=== PATIENT | male | born 1955 | race Caucasian/White ===

== ENCOUNTER 2018-05-08 14:52 | Inpatient (IN) | payer OTHER, SELFPAY ==
[2018-05-08] MEDS ORDERED: Sodium Chloride 0.9% 1,000 ML IV SCH (15:00)
[2018-05-08] MEDS ORDERED: niCARdipine 20MG In NaCl 20 MG/200 ML BAG ONE (15:13)
[2018-05-08 15:14] LABS: #Eosinphils 0.2 thou/uL (0.0-0.7); #Lymphocytes 1.5 thou/uL (1.20-3.40); #Monocytes 0.6 thou/uL (0.11-0.59); #Neutrophils 4.3 thou/uL (1.40-6.50); %Basophils 0.7 % (0.0-1.0); %Eosinophils 3.7 % (0.0-10.0); %Lymphocytes 22.5 % (21.0-51.0); %Monocytes 8.8 % (0.0-10.0); %Neutrophils 64.4 % (42.0-75.0); Mean Corpuscular HGB CONC 34.5 g/dL (32.0-36.0); Mean Corpuscular Hemoglobin 30.1 pg (27.0-31.0); Mean Corpuscular Volume 87.4 fL (78.0-98.0); Mean Platelet Volume 7.7 fL (7.4-10.4); Platelet Count 204 thou/uL (130-400); RBC Distribution Width 12.6 % (11.5-14.5); Red Blood Cell (RBC) Count 4.98 mill/uL (4.70-6.10); White Blood Cell (WBC) Count 6.7 thou/uL (4.8-10.8)
[2018-05-08 15:21] LABS: INR-International Normal Ratio 1.1; PTT 26.8 SEC (22.9-36.1); Prothrombin Time 14.4 SEC (12.0-14.7)
[2018-05-08 15:36] LABS: ALT (SGPT) 11 U/L (8-55); AST (SGOT) 18 U/L (5-34); Albumin 3.9 g/dL (3.4-4.8); Alkaline Phosphatase 87 U/L (40-150); Anion Gap 14 mmol/L (10-20); BUN (Urea Nitrogen) 19 mg/dL (8.4-25.7); Bilirubin, Total 1.2 mg/dL (0.2-1.2); Calc. Creatinine Clearance 0 mL/min (70-130); Calcium 8.7 mg/dL (7.8-10.44); Carbon Dioxide 21 mmol/L (23-31); Chloride 108 mmol/L (98-107); Estimated GFR-MDRD 38; Globulin 3.2 g/dL (2.4-3.5); Glucose 128 mg/dL (80-115); Potassium 3.5 mmol/L (3.5-5.1); Protein, Total 7.1 g/dL (5.8-8.1); Sodium 139 mmol/L (136-145)
[2018-05-08 15:38] LABS: Actual Bicarbonate (HCO3a) 24.2 mEq/L (22-28); Analyzer IN Cardio ER; Base Excess (BEa) -1.5 mEq/L (-2.0 to +3.0); CO2 Tension 44.3 mmHg (35.0-45.0); Calcium, Ionized 1.12 mmol/L (1.12-1.30); Carboxyhemoglobin (COHb) 0.9 gm% (0.0-3.0); Hemoglobin (Hb) 15.3 g/dL (14.0-18.0); O2 Tension (PaO2) 73.7 mmHg (> 80.0); Potassium - ABG Lab 3.36 mmol/L (3.70-5.30); Puncture Site RRA; pH, Arterial 7.36 (7.35-7.45)
[2018-05-08 15:39] LABS: ALV-art Gradient 227.425 (0-20)
--- NOTE | 2018-05-08 16:03 | CT ---
CT BRAIN WITHOUT CONTRAST: HISTORY: Stroke alert with left-sided deficits. COMPARISON: CT brain from 07/17/2016. FINDINGS: There is a very large left basal ganglia hemorrhage, measuring 8 x 5.3 x 4 cm. There is a rupture in to the lateral ventricles with large volume left and right lateral ventricular hemorrhage, as well as hemorrhage within the third and fourth ventricles. There is early obstructive hydrocephalus with en largement of both temporal horns. There is 2 cm left to right midline shift. The calvarium is intac t. IMPRESSION: 1. Large intracranial hemorrhage, as described above. 2. 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 POS: [facility]
--- NOTE | 2018-05-08 16:08 | RAD ---
CHEST ONE VIEW: HISTORY: Altered mental status. COMPARISON: Chest radiograph from 03/01/2017. FINDINGS: There is volume loss in the right upper lobe. The patient is intubated with the endotracheal tube ti p at the level of the clavicles. There are left lower lobe air space opacities. IMPRESSION: 1. Endotracheal tube tip likely at the level of the clavicles. 2. Volume loss in the right upper lobe. This may be due to an obstructing mass versus atelectatic c hanges. Followup recommended. 3. Air space opacities in the left lung base concerning for infection. POS: [facility]
[2018-05-08] MEDS ORDERED: fentaNYL Citrate/PF 2,000 MCG in Sodium Chloride 0.9% 60 ML IV SCH (17:10)
[2018-05-08] MEDS ORDERED: Propofol 1,000 MG/100 ML VIAL IV PRN (17:10)
[2018-05-08] MEDS ORDERED: Fentanyl BOLUS 250 ML IVPB PRN (17:10)
[2018-05-08] MEDS ORDERED: Propofol BOLUS 1,000 MG/100 ML VIAL IV PRN (17:10)
[2018-05-08] MEDS ORDERED: Lorazepam 2 MG/ML VIAL SLOW IVP PRN (17:10)
[2018-05-08] MEDS ORDERED: Morphine 2 MG/ML SYRINGE SLOW IVP PRN (17:10)
[2018-05-08] MEDS ORDERED: DISCONTINUE PREVIOUS NARCOTIC PAIN MEDICATIONS AND BENZODIAZEPINES FS SCH (17:10)
[2018-05-08] MEDS ORDERED: CCU Electrolyte Replacement 1 EACH FS ONE (17:18)
[2018-05-08] MEDS ORDERED: Magnesium Oxide 400 MG TAB PO PRN ×2 (17:27)
[2018-05-08] MEDS ORDERED: Potassium Phosphate 9 MMOL in Sodium Chloride 0.9% 100 ML IVPB PRN (17:27)
[2018-05-08] MEDS ORDERED: Potassium Chloride 40 MEQ in Premix Bag 1 BAG IVPB PRN (17:27)
[2018-05-08] MEDS ORDERED: Magnesium 2 GM/NS 0.9% 100 ML 2 GM in Premix Bag 1 BAG IVPB PRN (17:27)
[2018-05-08] MEDS ORDERED: Potassium Phosphate 15 MMOL in Sodium Chloride 0.9% 250 ML 250 ML IV PRN (17:27)
[2018-05-08] MEDS ORDERED: Potassium Phosphate 12 MMOL in Sodium Chloride 0.9% 250 ML 250 ML IV PRN (17:27)
[2018-05-08] MEDS ORDERED: Potassium Chloride 40 MEQ in Sodium Chloride 0.9% 250 ML 250 ML IVPB PRN (17:27)
[2018-05-08] MEDS ORDERED: CCU ELECTROLYTE REPLACEMENT PROTOCOL FS PRN (17:27)
[2018-05-08] MEDS ORDERED: Potassium Chloride 20 MEQ TAB PO PRN (17:27)
[2018-05-08] MEDS ORDERED: niCARdipine 40MG In NaCl 40 MG/200 ML BAG IVPB SCH (17:30)
[2018-05-08] MEDS ORDERED: Norepinephrine 8 MG/0.9% NS 250 ML IVPB SCH (17:30)
[2018-05-08 19:34] VITALS: BMI 44.2
[2018-05-08 19:36] VITALS: TEMP 97.7
--- NOTE | 2018-05-08 22:41 | CON ---
DATE OF CONSULTATION: This is a 50-minute initial patient evaluation, of which greater than 50% of the exam was spent in counseling, coordinating patient's care. Remainder of the exam was spent in review of patient's medical records and appropriate imaging studies. CHIEF COMPLAINT: Sudden onset of right-sided weakness with history of previous CVA. HISTORY OF PRESENT ILLNESS: Mr. Ramirez is a 63-year-old male who presents to [facility] as an airlift. The patient with the above complaints. According to the patient's son and sister who are at bedtime who helps to provide the information, the patient was sitting down to eat lunch with his son when he began to experience significant sudden onset right-sided weakness. Previous CVA in July of 2016 that left him with some residual left-sided weakness. Again, he has sudden onset of right-sided weakness, had previous left-sided weakness due to a previous right-sided hemorrhagic stroke in July of 2016. The patient has not been on any type of medication including antihypertensive medications since January as he has been unable to afford these. He, according to patient's son, also has what he thinks is atrial fibrillations, but is unsure what blood thinner he is on and again has not been taking medications other than a full-strength aspirin as this is available [id number]. His systolic blood pressure in the field was roughly 240 and in the emergency room, at the time of exam, his systolic blood pressure was 208 and is currently on a Cardene drip. Review of patient's head CT shows large left deep thalamic hemorrhage with extension into bilateral ventricles. There is occlusion of the 4th ventricle and there is hydrocephalus developing. There is mass effect of the hemorrhage causing a slight amount of midline chest. At the time of exam at roughly 3:30, the patient received etomidate and rocuronium for rapid sequence intubation in the field. He was with a GCS of 8. Again, he was airlifted to [facility]. PHYSICAL EXAMINATION: The patient is currently a GCS 3T, E1 V1 M1. He has no corneal reflexes and his pupils are fixed and dilated, slightly larger on the left at 5 mm and slightly smaller, fixed around 4 mm on the right. He does appear to have dolls eyes on exam. He is not currently overbreathing the ventilator. He has no gag reflex or cough reflex. He does not move any of the extremities to repeated noxious stimulus or to command. He has a spontaneous eye opening. 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 PLAN: I have discussed the patient's case and imaging with Dr. Metcalf in great detail. Unfortunately, given the patient's moribund exam and radiographic imaging, this hemorrhage is not survivable. The patient is not a good candidate for EVD given the fact that the hemorrhage extends into both ventricles. I did let the family know that the patient's prognosis is extremely poor and that he will likely not survive this hemorrhage, especially given his exam and his radiographic findings on CT. The patient's family is very distraught and have asked for some time to process this. Multiple family members have been in and out of the room and I have discussed the patient's case with them and I have also discussed DNR and DNI status. I have expressed how deeply sorry we are for the patient and his family. Our Medicine colleagues will admit the patient as again, there is nothing neurosurgically we can do given the location and size of the hemorrhage. The patient's family did state their understanding and are appreciative of our care. Palliative Care and Hospice will also be involved in the patient's care. Please call with any questions. Otherwise, Neurosurgery will sign off as there is no role for intervention at this time. Job ID: [id number]
--- NOTE | 2018-05-08 22:51 | HP ---
CHIEF COMPLAINT: CVA. HISTORY OF PRESENT ILLNESS: This patient is a 63-year-old male, who was brought to the emergency department with acute CVA. The patient has a history of a prior hemorrhagic CVA in July of 2016 when he was taken to [facility] in [place]. The patient also has a history of atrial fibrillation, but was not on any anticoagulants due to lack of resources. The patient was apparently sitting at lunch today when he suddenly started losing the function in his right arm. His son called ambulance, although the patient was telling him not to do so. On arrival, the patient's GCS dropped significantly. He required intubation and subsequent transfer to the emergency department. In the ER, the patient's GCS was at 3. CT scan has shown a large hemorrhagic CVA. Neurosurgery evaluated the patient and felt that there was no intervention possible and that the prognosis for this was extremely poor. Therefore, we have been asked to admit the patient to the medical service. He has been intubated and is currently on the ventilator. He has nicardipine drip going. REVIEW OF SYSTEMS: Unobtainable due the patient's unconscious state. PAST MEDICAL HISTORY: Hemorrhagic CVA in July of 2016, treated at [facility] with some residual left-sided deficits, has atrial fibrillation, hypertension. PAST SURGICAL HISTORY: Left knee surgery, hernia repair, appendectomy. FAMILY HISTORY: Mother had diabetes and CVA. Father had coronary artery disease and of a CVA. SOCIAL HISTORY: No alcohol, no tobacco. He is not . He has three sons. Two of the sons and a sister present. ALLERGIES: NONE. MEDICATIONS: Aspirin. PHYSICAL EXAMINATION: VITAL SIGNS: Temperature was 97.7 oral, pulse 112, blood pressure 169/86. GENERAL APPEARANCE: Age-appropriate male, intubated, on a mechanical ventilator. He has no spontaneous respirations or movement. HEENT: Pupils are dilated and fixed. ET tube in place. NECK: Supple and symmetric. HEART: Tachycardic, regular, with no murmurs present. LUNGS: Clear to auscultation bilaterally with good chest wall expansion and air exchange. ABDOMEN: Soft, nondistended. No bowel sounds. No masses. No organomegaly. EXTREMITIES: Warm and dry without edema. LABORATORY DATA/IMAGING: White count 6.7, hemoglobin 15, platelets 204. Coags normal. ABG, pH 7.36, pCO2 is 44, PO2 is 74. Sodium 139, potassium 3.5, chloride 108, CO2 is 21, BUN 19, creatinine 1.82, glucose 128. LFTs normal. Chest x-ray shows some volume loss in the right upper lobe, otherwise clear. CT of the brain shows an old right basal ganglia infarct from July of 2016 as well as a very large basal ganglia hemorrhage measuring 8 x 5.3 x 4 cm with rupture into the lateral ventricles with large volume left and right lateral ventricular hemorrhage with hemorrhage into the 3rd and 4th ventricles, early obstructive hydrocephalus, enlargement of both temporal horns, 2 cm left to right midline shift. IMPRESSION AND PLAN: 1. Massive cerebral hemorrhage with 2 cm midline shift and rupture into the ventricle circulation. The patient has been seen by Neurosurgery and his prognosis is deemed to be extremely poor. ER physician whom I spoke with said he has discussed this with the family. I also discussed the case with Pulmonary Critical Care. The patient is in the ICU. He will remain on the ventilator. He is on a nicardipine drip to ensure the blood pressure remains below 185. I have talked to two of the patient's sons and his sister. They feel the need to talk to the third son before making any decisions regarding the patient's code status. The patient's sister is clear that she does not believe the patient wanted any of this and the patient's son who was present was clear that the patient had told him not to call the ambulance when he did. That being said, I have left the door open for them to talk to us at any point regarding any decisions regarding his code status. 2. Chronic kidney disease. His GFR 38 is consistent with what it was back in July, making this a stage 3 chronic kidney disease. 3. History of atrial fibrillation, generally untreated. 4. History of hypertension. Job ID: [id number]
--- NOTE | 2018-05-08 23:43 | CON ---
DATE OF CONSULTATION: 05/08/2018 45 minutes critical care time. CONSULTING PHYSICIAN: Casey Yang MD REASON FOR CONSULTATION: Respiratory failure. HISTORY OF THE PRESENT ILLNESS: He is a 63-year-old male, who is brought in by EMS. He has had a large left-sided cerebrovascular accident with significant intraparenchymal bleeding affecting his third and fourth ventricles. He has profound neurologic deficit. He is currently intubated on mechanical ventilation, he is also on a Cardene drip. PAST MEDICAL HISTORY: Hypertension and atrial fibrillation. PAST SURGICAL HISTORY: Appendectomy, cholecystectomy, and left knee surgery. SOCIAL HISTORY: Nonsmoker and nondrinker. Does not consume alcohol. ALLERGIES: NONE. FAMILY MEDICAL HISTORY: Remarkable for hypertension. REVIEW OF SYSTEMS: Cannot be obtained as the patient is on mechanical ventilation. OUTPATIENT MEDICATIONS: Aspirin. PHYSICAL EXAMINATION: VITAL SIGNS: Pulse 53, blood pressure 169/73, O2 saturation 97%, and respiratory rate 20. GENERAL: He is intubated on mechanical ventilation. HEENT: Pupils are 5 mm, unreactive. Has no corneal reflex, has no spontaneous blink. NECK: No adenopathy or JVD. CHEST: Clear to auscultation. CARDIAC: S1 and S2. Regular. Some bradycardia. LUNGS: Clear. ABDOMEN: Obese, soft. Midline umbilical hernia present. EXTREMITIES: No clubbing, cyanosis, or edema. DIAGNOSTIC DATA: Head CT shows significant brain bleed. Chest x-ray demonstrates elevated right hemidiaphragm compared to left. There appears to be some right upper lobe atelectasis. An ET tube is coming into the left mainstem bronchus, so this probably needs to be pulled back, but has not been. LABORATORY DATA: White blood cell count 6.7, hematocrit 43.5, and platelet count 204. PH 7.36, pCO2 of 44, pO2 of 73 on SIMV rate of 20, tidal volume 500, PEEP 5, pressure support 10, and FiO2 of 50%. Sodium 139, potassium 3.5, chloride 108, CO2 of 21, BUN 19, creatinine 1.8, glucose 128. ASSESSMENT: 1. Profound brain bleed with neurologic deficit. Certainly, his neurologic status is near brain besides for a gag and some spontaneous breaths. Based on what his heart rate is doing, I think he will probably herniate in a short fashion. 2. Acute respiratory failure secondary to stroke. 3. Hypertension - currently on Cardene drip. PLAN: This patient will be kept on mechanical ventilation. Supportive care will be applied. I doubt he needs any sedation. Family has been spoken to by the primary team. TIME SPENT: This encompassed 45 minutes of critical care time. Job ID: [id number]
--- NOTE | 2018-05-09 00:37 | OP ---
DATE OF PROCEDURE: 05/08/2018 PROCEDURE PERFORMED: Bronchoscopy. PREOPERATIVE DIAGNOSES: 1. Right upper lobe atelectasis. 2. Possible left mainstem intubation. DESCRIPTION OF PROCEDURE: This was done on an emergent basis to make sure endotracheal tube was in the appropriate location and that there was no mucus plugging in the right upper lobe. A disposable bronchoscope made by [facility] was placed through the patient's endotracheal tube while he was on volume-cycled ventilation. The endotracheal tube was approximately 4 cm above the jackie. A quick look in the airway showed some scant mucoid secretions in the right upper lobe. These were lavaged with saline and aspirated. The remainder of the airway was clear, and he tolerated the procedure well. Job ID: [id number]
[2018-05-09] MEDS: niCARdipine HCl 25 MG in Sodium Chloride 0.9% 250 ML 240 ML IVPB SCH ×4 (01:02→11:28)
[2018-05-09 05:07] LABS: Anion Gap 15 mmol/L (10-20); BUN (Urea Nitrogen) 23 mg/dL (8.4-25.7); Calc. Creatinine Clearance 69 mL/min (70-130); Calcium 8.8 mg/dL (7.8-10.44); Carbon Dioxide 24 mmol/L (23-31); Chloride 107 mmol/L (98-107); Estimated GFR-MDRD 31; Glucose 166 mg/dL (80-115); Potassium 3.8 mmol/L (3.5-5.1); Sodium 142 mmol/L (136-145)
[2018-05-09 05:21] LABS: #Lymphocytes 0.7 thou/uL (1.20-3.40); #Monocytes 1.1 thou/uL (0.11-0.59); #Neutrophils 13.5 thou/uL (1.40-6.50); %Lymphocytes 4.4 % (21.0-51.0); %Monocytes 7.4 % (0.0-10.0); %Neutrophils 88.1 % (42.0-75.0); Hemoglobin 13.7 g/dL (14.0-18.0); Mean Corpuscular HGB CONC 32.8 g/dL (32.0-36.0); Mean Corpuscular Hemoglobin 28.4 pg (27.0-31.0); Mean Corpuscular Volume 86.6 fL (78.0-98.0); Platelet Count 216 thou/uL (130-400); RBC Distribution Width 12.6 % (11.5-14.5); Red Blood Cell (RBC) Count 4.82 mill/uL (4.70-6.10); White Blood Cell (WBC) Count 15.3 thou/uL (4.8-10.8)
[2018-05-09 06:49] LABS: Actual Bicarbonate (HCO3a) 23.5 mEq/L (22-28); Base Excess (BEa) -0.6 mEq/L (-2.0 to +3.0); CO2 Tension 37.6 mmHg (35.0-45.0); Calcium, Ionized 1.18 mmol/L (1.12-1.30); Carboxyhemoglobin (COHb) 0.3 gm% (0.0-3.0); Hemoglobin (Hb) 19.3 g/dL (14.0-18.0); Potassium - ABG Lab 3.69 mmol/L (3.70-5.30); pH, Arterial 7.41 (7.35-7.45)
[2018-05-09 06:54] LABS: Puncture Site LRA
--- NOTE | 2018-05-09 08:15 | PRG ---
DATE OF SERVICE: 05/09/2018 PULMONARY/CRITICAL CARE PROGRESS NOTE. TIME SPENT: 30 minutes of critical care time. SUBJECTIVE: The patient remains intubated on mechanical ventilation. Neurologically, he has a gag reflex. He has spontaneous respirations. Pupils are nonreactive. Has no oculocephalic reflex. Does not withdraw to pain in any extremity. Does not interact. OBJECTIVE: VITAL SIGNS: Pulse 72, O2 saturation 97%, respiratory rate 22, blood pressure 161/74, and temperature 99.3 with a T-max of 100.0. HEENT: Shows no other significant findings. NECK: No JVD. LUNGS: Clear. CARDIAC: S1 and S2, regular. ABDOMEN: Soft. Midline hernia. EXTREMITIES: No edema. LABORATORY DATA: White blood cell count 15.3, hematocrit 41.7, and platelet count 216. INR 1.1. PH of 7.41, pCO2 of 37, pO2 of 86 on SIMV rate of 20, tidal volume 500, PEEP 5, pressure support 10, and FiO2 of 50%. Sodium 142, potassium 3.8, chloride 107, CO2 of 24, BUN 23, creatinine 2.2, and glucose 166. TSH 1.4. Cortisol was 16. Chest x-ray shows resolution of the right upper lobe atelectasis after the bronchoscopy yesterday. He still has some infiltrative changes there. He has a small bilateral pleural effusions. I do not notice any difference in diaphragm levels today. ASSESSMENT: 1. Significant brain hemorrhage with mass effect. 2. Profound neurologic deficits with only few brainstem reflexes left intact. 3. History of hypertension - currently requiring Cardene drip. 4. Renal insufficiency, likely related to hypertensive nephrosclerosis. PLAN: 1. Continue supportive care with mechanical ventilation. The ventilator settings are appropriate. 2. Monitor electrolytes. 3. Consider starting enteral tube feeds for support and nutritional care because the patient may end up being an organ donor if this progresses toward brain . 4. Update family as they become available. Job ID: [id number]
--- NOTE | 2018-05-09 09:12 | RAD ---
CHEST 1 VIEW: HISTORY: Altered mental status. COMPARISON: Radiograph from prior day. FINDINGS: Endotracheal tube tip is at the level of the clavicles. Enteric tube tip appears to be below the amrit phragm although it is very poorly seen. There are layering effusions. Improved aeration of the right upper lobe. Improving edema. IMPRESSION: Improving aeration right upper lobe and improving edema. POS: [facility]
--- NOTE | 2018-05-09 09:24 | PRG ---
DATE OF SERVICE: 05/09/2018 I reviewed the notes from my colleague, FRANCO Boswell. Mr. Ramirez is a 63-year-old man with a history of right-sided cerebral infarct with left-sided weakness, but he was still functional. He developed the acute onset of right-sided weakness and was brought in for further evaluation. He has a history of hypertension. Hence, he was transported here with neurologic decline. Head CT demonstrates substantially large left-sided basal ganglia, thalamic and extension in the basal ganglia hemorrhage with intraventricular extension, obstructive hydrocephalus. Upon our evaluation here, his pupils are in midposition and fixed with loss of brainstem reflexes. It is surprise to say unfortunately his exam is moribund and there is nothing that we can offer. We discussed this with the family and recommended Palliative Care, strongly suspect hypertensive hemorrhage. He was admitted for palliative care. Job ID: [id number]
--- NOTE | 2018-05-09 10:25 | PDOC.PN ---
- Subjective Encounter Start Date: 05/09/18 Encounter Start Time: 14:10 -: non-verbal Subjective: Patient unchanged overnight. Unresponsive on the vent. - Objective Resuscitation Status - Order Detail: 05/08/18 17:15 Resuscitation Status Routine Resuscitation Status: FULL: Full Resuscitation MAR Reviewed: Yes Vital Signs & Weight: Vital Signs (12 hours) Pulse Resp BP 05/09/18 06:24 68 162/82 H 05/09/18 06:00 20 05/09/18 04:00 22 H 05/09/18 03:30 85 141/70 H 05/09/18 02:00 21 H 05/09/18 00:00 20 05/08/18 22:33 58 L Weight Weight 299 lb 13.259 oz Most Recent Monitor Data Heart Rate from ECG 83 NIBP 161/74 NIBP BP-Mean 103 Respiration from ECG 22 SpO2 98 I&O: 05/08/18 05/09/18 05/10/18 06:59 06:59 06:59 Intake Total 1569.6 Output Total 1225 Balance 344.6 Result Diagrams: 05/09/18 04:39 05/09/18 04:39 Additional Labs: Accuchecks 05/08/18 15:06 POC Glucose 126 H Phys Exam - Physical Examination HEENT: moist MMs pupils non-reactive Respiratory: no wheezing, no rales, no rhonchi Cardiovascular: RRR Gastrointestinal: soft, positive bowel sounds no movement of extremities Deviation from normal: unresponsive on the vent Dx/Plan (1) Hemorrhagic cerebrovascular accident (CVA) Code(s): I61.9 - NONTRAUMATIC INTRACEREBRAL HEMORRHAGE, UNSPECIFIED Status: Acute Comment: Brainstem stroke with loss of reflexes, no neurosurgical intervention recommended, palliative care (2) Hypertension Code(s): I10 - ESSENTIAL (PRIMARY) HYPERTENSION Status: Chronic (3) Chronic renal failure Status: Chronic Qualifiers: Chronic kidney disease stage: stage 3 (moderate) Qualified Code(s): N18.3 - Chronic kidney disease, stage 3 (moderate) - Plan cont current plan of care, respiratory therapy Poor prognosis, palliative care consulted. * . - Discharge Day Encounter end time: 14:30 Pulmonology Consult: Meds - Medications MAR Reviewed: Yes Medications: Current Medications Fentanyl Citrate 2,000 mcg/ (Sodium Chloride) 100 mls @ 0 mls/hr IV INF HAZEL; Protocol Stop: 06/07/18 17:10 Fentanyl Citrate (Fentanyl Bolus) 250 mls @ 0 mls/hr IVPB PRN PRN PRN Reason: Breakthrough pain/agitation Stop: 06/07/18 17:10 Norepinephrine Bitartrate (Levophed) 250 mls @ 0 mls/hr IVPB INF HAZEL; Protocol Nicardipine HCl 25 mg/ Sodium (Chloride) 250 mls @ 0 mls/hr IVPB INF HAZEL; Protocol Last Admin: 05/09/18 07:30 Dose: 250 mls Potassium Chloride 40 meq/ (Sodium Chloride) 270 mls @ 135 mls/hr IVPB ASDIR PRN PRN Reason: FOR SERUM K+ 2.5 - 3.5 Last Admin: 05/08/18 20:08 Dose: 270 mls Potassium Chloride 40 meq/ (Device) 100 mls @ 50 mls/hr IVPB ASDIR PRN PRN Reason: FOR SERUM K+ 2.5 - 3.5 Magnesium Sulfate 1 gm/ Sodium (Chloride) 102 mls @ 102 mls/hr IV PRN PRN PRN Reason: MAG LEVEL 1.4 - 2.0 Magnesium Sulfate 2 gm/ Device 100 mls @ 100 mls/hr IVPB ASDIR PRN PRN Reason: MAGNESIUM < 1.4 Potassium Phosphate 9 mmol/ (Sodium Chloride) 103 mls @ 25.75 mls/hr IVPB ASDIR PRN PRN Reason: Phosphate 1.0-1.8 Potassium Phosphate 12 mmol/ (Sodium Chloride) 254 mls @ 63.5 mls/hr IV ASDIR PRN PRN Reason: Serum phosphate 0.5-0.9 Potassium Phosphate 15 mmol/ (Sodium Chloride) 255 mls @ 63.75 mls/hr IV ASDIR PRN PRN Reason: Serum Phos < 0.5 Lorazepam (Ativan) 2 mg SLOW IVP Q1H PRN PRN Reason: Breakthrough agitation Stop: 06/07/18 17:10 Magnesium Oxide (Magnesium Oxide) 400 mg PO BIDPRN PRN PRN Reason: FOR SERUM MAG 1.4 - 2.0 Magnesium Oxide (Magnesium Oxide) 800 mg PO PRN PRN PRN Reason: FOR SERUM MAG < 1.4 Miscellaneous Medication (Phos-Nak) 1 pkt PO TIDPRN PRN PRN Reason: FOR PHOS LEVEL 1.0 - 1.8 Miscellaneous Medication (Phos-Nak) 2 pkt PO TIDPRN PRN PRN Reason: FOR PHOS LEVEL 0.5 - 1.0 Morphine Sulfate (Morphine) 2 mg SLOW IVP Q1H PRN PRN Reason: BREAKTHROUGH PAIN/Agitation Stop: 06/07/18 17:10 Discontinue Previous Narcotic Pain Medications And Benzodiazepines 1 each FS .ONE HAZEL Stop: 06/07/18 17:10 Ccu Electrolyte (Replacement Protocol) 0 each FS PRN PRN PRN Reason: FOR ELECTROLYTE REPLACEMENT Potassium Chloride (K-Dur) 40 meq PO ASDIR PRN PRN Reason: FOR SERUM K+ 2.5 - 3.5 Potassium Chloride (Klor-Con) 40 meq PER TUBE ASDIR PRN PRN Reason: FOR SERUM K+ 2.5-3.5 Propofol (Diprivan) 1,000 mg IV INF PRN; Protocol PRN Reason: TO ACHIEVE GOAL RASS Stop: 06/07/18 17:10 Propofol (Diprivan Bolus) 20 mg IV Q5MIN PRN PRN Reason: BREAKTHROUGH AGITATION Stop: 06/07/18 17:10 Sodium Chloride (Flush - Normal Saline) 10 ml IVF Q12HR HAZEL Last Admin: 05/09/18 09:19 Dose: 10 ml Sodium Chloride (Flush - Normal Saline) 10 ml IVF PRN PRN PRN Reason: Saline Flush - Allergies Allergies/Adverse Reactions: Allergies Allergy/AdvReac Type Severity Reaction Status Date / Time No Known Allergies Allergy Unverified 05/08/18 17:10
[2018-05-09] MEDS: niCARdipine HCl 50 MG in Sodium Chloride 0.9% 250 ML 230 ML IVPB SCH ×3 (14:25→21:11)
[2018-05-09 22:37] VITALS: BP 174/82
[2018-05-09] MEDS ORDERED: Diltiazem HCl 125 MG, Admixture Fee 1 EACH in Sodium Chloride 0.9% 100 ML IVPB SCH (23:00)
[2018-05-10] MEDS ORDERED: Aspirin 325 MG TAB PO SCH (09:00)
--- NOTE | 2018-05-11 03:10 | DIS ---
DATE OF ADMISSION: 05/08/2018 DATE OF DISCHARGE: 05/10/2018 SUMMARY REASON FOR ADMISSION: Intracerebral hemorrhage. CAUSE OF : Hemorrhagic cerebrovascular accident. CONTRIBUTING FACTORS: Hypertension. SUMMARY OF HOSPITAL COURSE: This 63-year-old male with a history of previous hemorrhagic stroke in 2017. He also has a history of atrial fibrillation, but not on anticoagulation due to the lack of resources. He just take aspirin. He started losing function of his right arm while sitting at lunch. EMS was called. After they arrived, his GCS dropped. He required intubation and transfer to the emergency department. In the ER, his GCS went to 3. CT scan showed a large hemorrhagic CVA. Neurosurgery was consulted and determined that there was no beneficial intervention and he had a poor prognosis. The patient was admitted to the ICU. Dr. Rodriguez of Pulmonology was consulted for vent management. He also performed a bronchoscopy for possible left mainstem intubation and some right upper lobe atelectasis. The patient's family discussed his prognosis with Neurosurgery and they determined that he would not want any aggressive intervention and they did try to give him 2 or 3 days to see if he started to recover any. The patient actually deteriorated and did decline eventually when he went into ventricular rhythm and had a drop in his blood pressure. After discussion between all of his family members, they determined to make him do not attempt resuscitation and the patient at 0132 hours on May 10, 2018. His body was discharged to the home. Job ID: [id number]
== END 2018-05-10 01:32 | disposition expired | DRG 64 ==
LOC: ERS 14:52 → CCU 16:49
PROVIDERS: ADMIT Internal Medicine; ATTEND Internal Medicine
PROC: 5A1945Z Respiratory Ventilation, 24-96 Consecutive Hours (ICD-10-PCS; principal; 2018-05-08)
PROC: 0B9C8ZX Drainage of Right Upper Lung Lobe, Via Natural or Artificial Opening Endoscopic, Diagnostic (ICD-10-PCS; 2018-05-08)
DX: I62.9 Nontraumatic intracranial hemorrhage, unspecified (principal); J96.00 Acute respiratory failure, unspecified whether with hypoxia or hypercapnia; J98.11 Atelectasis; G91.1 Obstructive hydrocephalus; Z51.5 Encounter for palliative care; I48.91 Unspecified atrial fibrillation; I12.9 Hypertensive chronic kidney disease with stage 1 through stage 4 chronic kidney disease, or unspecified chronic kidney disease; Z66 Do not resuscitate; N18.3 Chronic kidney disease, stage 3 (moderate); R40.2432 Glasgow coma scale score 3-8, at arrival to emergency department; Z79.82 Long term (current) use of aspirin; Z82.3 Family history of stroke; Z83.3 Family history of diabetes mellitus; Z82.49 Family history of ischemic heart disease and other diseases of the circulatory system
CPT/HCPCS: 36415; 36416; 51702; 70450; 71045; 80048; 80053; 82533; 82805; 84443; 85025; 85610; 85730; 93005; 94002; 94003; 96365; J3480; J7050